=== PATIENT | male | born 1995 | race Caucasian/White ===

== ENCOUNTER 2017-12-05 04:23 | Emergency (ER) | payer SELFPAY ==
[~2017-12-05] VITALS: Ht 180.3 cm; Wt 77.1 kg
[2017-12-05 04:26] VITALS: BP 127/77
[2017-12-05] MEDS ORDERED: LIDOCAINE MPF 1% - **ER/OR** 10 MG/ML VIAL ONE ×2 (06:13→06:14)
[2017-12-05] MEDS ORDERED: LIDOCAINE 1% 500 MG/50 ML VIAL INJ SCH (06:15)
[2017-12-05] MEDS ORDERED: BACITRACIN OINT 500 UNITS/GM PKT TP ONE (06:32)
[2017-12-05 06:55] VITALS: BP 118/63
--- NOTE | 2017-12-05 06:55 | NUR ---
dPatient discharged with v/s stable. Written and verbal after care instructions given and explained. Patient verbalized understanding. Police with in custody. All questions addressed prior to discharge. Advised to follow up with PMD.
== END 2017-12-05 06:55 | disposition home or self-care (01) ==
LOC: MED 04:23
DX: S01.21XA Laceration without foreign body of nose, initial encounter (principal); F10.99 Alcohol use, unspecified with unspecified alcohol-induced disorder; V49.40XA Driver injured in collision with unspecified motor vehicles in traffic accident, initial encounter; Y93.89 Activity, other specified; Y92.488 Other paved roadways as the place of occurrence of the external cause; Y99.8 Other external cause status
CPT/HCPCS: 12011; 70150; 99284; J2001